=== PATIENT | female | born 1995 | race African-American/Black ===

== ENCOUNTER → 2017-11-21 | Outpatient (CLI) | payer OTHER ==
[2017-11-21 16:20] LABS: Anisocytosis Slight; HCT 32.6 % (34.0-46.0); HGB 10.9 gm/dL (11.4-16.0); MCH 27.6 pg (25.0-35.0); MCHC 33.4 g/dL (31.0-37.0); MCV 82.7 fL (80.0-100.0); Mean Platelet Volume 7.9; Platelet Count 209 k/uL (150-450); RBC 3.95 m/uL (3.80-5.40); RDW 17.3 % (11.5-15.5); WBC 8.6 k/uL (3.8-10.6)
[2017-11-21 16:34] LABS: ALT 24 U/L (9-52); AST 23 U/L (14-36); Blood Urea Nitrogen 5 mg/dL (7-17); LDH 442 U/L (313-618); Uric Acid 5.3 mg/dL (3.7-7.4)
[2017-11-21 16:40] LABS: Appearance,Urine Clear (Clear); Bacteria,Urine Rare /hpf; Bilirubin,Urine Negative (Negative); Blood,Urine Trace (Negative); Color,Urine Light Yellow; Glucose,Urine (UA) Negative (Negative); Ketones,Urine Negative (Negative); Leukocyte Esterase,Urine Large (Negative); Nitrite,Urine Negative (Negative); PH, Urine 7.5 (5.0-8.0); Protein,Urine Negative (Negative); RBC,Urine <1 /hpf (0-5); Specific Gravity,Urine 1.006 (1.001-1.035); Squamous Epithelial Cell,Urine 4 /hpf (0-4); Urobilinogen,Urine <2.0 mg/dL (<2.0); WBC,Urine 4 /hpf (0-5)
[2017-11-21 17:08] LABS: Creatinine,Urine Random 43.4 mg/dL
== END | disposition home or self-care (01) ==
LOC: LABWHC1 15:35
PROVIDERS: ATTEND Obstetrics & Gynecology
DX: O13.9 Gestational [pregnancy-induced] hypertension without significant proteinuria, unspecified trimester (principal); Z3A.00 Weeks of gestation of pregnancy not specified
CPT/HCPCS: 36415; 81001; 82565; 82570; 83615; 84156; 84450; 84460; 84520; 84550; 85027